=== PATIENT | male | born 1995 | race Two or more races ===

== ENCOUNTER 2025-06-01 16:00 | Outpatient (RCR) | payer MEDICAID, SELFPAY ==
--- NOTE | 2025-05-25 15:13 | PTNOTE_ITS ---
PT OP Initial Eval Patient Information Outpatient Physical Therapy Treatment Date: 05/25/25 Visit Reasons: LOW BACK PAIN Medical Diagnosis: M51.26; M51.06 Treatment Dx #1: Back Pain Treatment Dx #2: BLE Weakness Start of Care: 05/25/25 Date of Onset: 2019 Smoking Status Smoking Status: Never smoker Initial Assessment Subjective: Pt is a 29 y/o male reports of chronic back pain with BLE weakness since he fell off a ladder in 2019. Pt' most recent MRI showed multiple disc bulge worse on L3-L4 5 mm centrally. Pt has attempted physical therapy and pain management with out success. Pt recently changed provider and wants him to re-attempt physical therapy. Pt has limitation with sitting, lifting, chores, self care, cooking cleaning, chores, walking, work duties, and performing recreational activities. Objective: L/S AROM: all motions are WFL with end pain in all plane Hip PROM: all motions are WFL except IR Hip MMTs: grossly 3/5 Special Test (+) SLR Assessment: Pt demonstrate back pain with BLE weakness consistent with MRI findings of disc bulge leading to difficulty with ADLs. Pt will attempt physical therapy if pain persist Pt will be refer back to provider for further consultation. Short Term and Software Test Analyst Goals 1) Increase L/S AROM WNL in 6 wks to be able to sit and stand more than 30 mins 2) Decrease back pain to 2/10 in 6 wks to be able to sleep mor than 6 hrs 3) Increase core strength WFL in 6 wks to be able to perform recreational activities 4) Increase hip MMTs grossly to 4-/5 in 6 wks to be able to walk more than 30 mins 5) Indep with HEP Treatment Plan 1) Manual Therapy 2) Therapeutic Activities 3) Therapeutic Exercises 4) Modalities (ice, heat) Frequency and Duration: 2 x wk for 6 wks Certification Dates: 05/25/25 to 08/25/25 Procedure Charges OP PT Eval Mod Complex 30 minutes: Yes
--- NOTE | 2025-05-30 15:27 | PT.ODAYNRPT ---
PT Outpatient Daily Note OP Daily Note Outpatient Physical Therapy Treatment Date: 05/30/25 Visit Reasons: LOW BACK PAIN Subjective: Pt reports LBP and stiffness. Objective: Please see flow sheet for ther ex list. Assessment: Pt demonstrates poor tolerance with laying prone, pt encouraged to attempt laying flat in prone at home for HEP, pt agreed. Plan: Continue with POc. Length of Time (minutes) of Treatment: 30 Minutes Procedure Charges Therapeutic Exercise 30 minutes: Yes
--- NOTE | 2025-06-01 16:33 | PT.ODAYNRPT ---
PT Outpatient Daily Note OP Daily Note Outpatient Physical Therapy Treatment Date: 06/01/25 Visit Reasons: LOW BACK PAIN Subjective: Pt reports back is doing ok today, performed HEP. Objective: Please see flow sheet for ther ex list. Assessment: Pt demonstrates lumbar extension during rows exercise, cues to maintain spine in neutral pt complied. Plan: Continue with poC. Length of Time (minutes) of Treatment: 30 Minutes Procedure Charges Therapeutic Exercise 30 minutes: Yes
== END 2025-06-02 23:59 | disposition home or self-care (01) ==
LOC: CPTX 16:00
DX: M51.26 Other intervertebral disc displacement, lumbar region (principal); M51.06 Intervertebral disc disorders with myelopathy, lumbar region
CPT/HCPCS: 97110; 97162

== ENCOUNTER 2025-06-22 15:30 | Outpatient (RCR) | payer MEDICAID, SELFPAY ==
--- NOTE | 2025-06-09 16:07 | PT.ODAYNRPT ---
PT Outpatient Daily Note OP Daily Note Outpatient Physical Therapy Treatment Date: 06/09/25 Visit Reasons: low back pain Subjective: Pt c/o LBP. Objective: Please see flow sheet for the francia list. Assessment: Interventions completed with minimal pain. Plan: Continue with pOC. Length of Time (minutes) of Treatment: 30 Minutes Procedure Charges Therapeutic Exercise 30 minutes: Yes
--- NOTE | 2025-06-14 15:37 | PT.ODAYNRPT ---
PT Outpatient Daily Note OP Daily Note Outpatient Physical Therapy Treatment Date: 06/14/25 Visit Reasons: low back pain Subjective: Pt reports back feels the same, no changes to report at this time. Objective: Please see flow sheet for the francia list. Assessment: Pt presents in clinic with poor symptom improvement delaying progression of interventions in clinic. Plan: Continue with pOC. Length of Time (minutes) of Treatment: 30 Minutes Procedure Charges Therapeutic Exercise 30 minutes: Yes
--- NOTE | 2025-06-19 16:16 | PT.ODAYNRPT ---
PT Outpatient Daily Note OP Daily Note Outpatient Physical Therapy Treatment Date: 06/19/25 Visit Reasons: low back pain Subjective: Pt reports he is still having back pain. Objective: Please see flow sheet for ther ex list. Assessment: Progressing interventions as tolerated. Plan: Continue with poC. Length of Time (minutes) of Treatment: 30 Minutes Procedure Charges Therapeutic Exercise 30 minutes: Yes
--- NOTE | 2025-06-22 16:08 | PT.ODS1RPT ---
PT OP Progress/Discharge Note Date of Service: 06/22/25 Progress Note/DC Note Progress Note/Discharge Note: DC Note Patient Information Visit Reasons: low back pain Medical Diagnosis: M51.26; M51.06 Treatment Dx #1: Back Pain Treatment Dx #2: BLE Weakness Service Continue Service or Discharge: Discharge Discharge Date: 06/22/25 Status Subjective: Pt mentioned back pain is the same. No change in overall symptoms and continue to have weakness in the legs. Due to symptoms Pt has limitation with ADLs, chores, self care, cooking, walking, and performing recreational activities. Pt will like to stop physical therapy and return back to MD. Objective: L/S AROM: all motions are WFL with end range pain Hip PROM: all motions are WFL except IR Hip MMTs: grossly 3/5 Special Test (+) SLR Assessment: Pt demonstrate back pain with mobility deficits leading to difficulty with ADLs. Pt will no longer benefit from physical therapy due to minimal progression towards goals. Pt was instructed on HEP last session and educated to continue exercises to maintain overall mobility. Pt performed all exercises safely, thank you for your referrals. Plan: D/C home with HEP and follow up with PRN Procedure Charges Therapeutic Exercise 30 minutes: Yes
== END 2025-07-02 23:59 | disposition home or self-care (01) ==
LOC: CPTX 15:30
DX: M51.26 Other intervertebral disc displacement, lumbar region (principal); M51.06 Intervertebral disc disorders with myelopathy, lumbar region
CPT/HCPCS: 97110